=== PATIENT | male | born 1975 | race Caucasian/White ===

== ENCOUNTER 2018-04-22 18:31 | Emergency (ER) | payer SELFPAY ==
[~2018-04-22] VITALS: Ht 172.7 cm; Wt 90.7 kg
[2018-04-22] MEDS ORDERED: IV NS 0.9% 1,000 ML BAG IV ONE ×2 (19:00→21:00)
[2018-04-22 19:11] LABS: BASOPHILS # (AUTO) 0.1 /CMM (0.0-0.2); BASOPHILS % (AUTO) 0.6 % (0.0-2.0); EOSINOPHILS % (AUTO) 0.1 % (0.0-6.0); HEMATOCRIT 45 % (39-51); HEMOGLOBIN 15.4 g/dL (13.5-17.5); LYMPHOCYTES # (AUTO) 1.5 /CMM (0.8-4.8); LYMPHOCYTES % (AUTO) 13.2 % (20.0-44.0); MEAN CORPUSCULAR HGB CONC 34 g/dl (31.0-36.0); MEAN CORPUSCULAR VOLUME 96 fL (80-96); MONOCYTES # (AUTO) 0.8 /CMM (0.1-1.30); MONOCYTES % (AUTO) 6.5 % (2.0-12.0); NEUTROPHILS # (AUTO) 9.3 /CMM (1.8-8.9); NEUTROPHILS % (AUTO) 79.6 % (43.0-81.0); PLATELET COUNT (AUTO) 249 /CMM (150-450); RED BLOOD CELL COUNT(AUTO) 4.73 MIL/uL (4.5-6.0); WHITE BLOOD COUNT (AUTO) 11.6 K/uL (4.3-11.0)
[2018-04-22 19:24] LABS: CALCIUM, SERUM 8.5 mg/dL (8.5-10.1); CARBON DIOXIDE 23 mmol/L (21-32); CHLORIDE 104 mmol/L (98-107); GLUCOSE 142 mg/dL (74-106); SODIUM SERUM 134 mmol/L (136-145); UREA NITROGEN, BLOOD 18 mg/dL (7-18)
[2018-04-22 19:28] LABS: ALANINE AMINOTRANSFERASE 693 U/L (12-78); ALBUMIN 3.8 g/dL (3.4-5.0); ALCOHOL, BLOOD 106 mg/dL (0-0); ALKALINE PHOSPHATASE 121 U/L (46-116); ASPARTATE AMINOTRANSFERASE 290 U/L (15-37); BILIRUBIN,DIRECT 0.1 mg/dL (0.0-0.2); BILIRUBIN,TOTAL 0.4 mg/dL (0.2-1.0); TOTAL PROTEIN, SERUM 7.5 g/dL (6.4-8.2)
[2018-04-22 19:29] LABS: ACETAMINOPHEN < 10 ug/ml (10-30); SALICYLATE 1.7 mg/dL (2.8-20.0)
--- NOTE | 2018-04-22 19:30 | NUR ---
RECEIVED REPORT FROM DARWIN HAMILTON FOR [facility]ZA. PT ASHU PT WAS UNCONSCIOUS AND BYSTANDER CALLED 911. PT REC'D 2MG NARCAN EN ROUTE. PT NOW AAOX4. RESPIRATIONS EVEN AND UNLABORED. SKIN INTACT. VITAL SIGNS STABLE. NO ACUTE DISTRESS NOTED AT THIS TIME
--- NOTE | 2018-04-22 19:31 | NUR ---
[employer] AT BEDSIDE
--- NOTE | 2018-04-22 20:25 | NUR ---
PT UNABLE TO PROVIDE URINE SAMPLE AT THIS TIME
--- NOTE | 2018-04-22 20:30 | NUR ---
[facility] AT BEDSIDE
--- NOTE | 2018-04-22 21:55 | NUR ---
URINE COLLECTED AND SENT TO LAB
[2018-04-22 22:06] LABS: APPEARANCE,URINE Clear (CLEAR); BILIRUBIN,URINE Negative (NEGATIVE); BLOOD, URINE Negative Ery/uL (NEGATIVE); COLOR,URINE Yellow (YELLOW); KETONES,URINE Negative (NEGATIVE); LEUKOCYTE ESTERASE ,URINE Negative (NEGATIVE); NITRITE, URINE Negative (NEGATIVE); PROTEIN,URINE Negative (NEGATIVE); UGLUCOSE Negative (NEGATIVE); UROBILINOGEN,URINE 0.2 EU/dL (0.2)
--- NOTE | 2018-04-22 23:24 | NUR ---
PROVIDED PT WITH CLOTHES. OFFERED PT SANDWICH AND CRACKERS, PT REFUSED. PT STATES HE DOES NOT WANT HELP WITH RESOURCES OR TO WAIT FOR SUPPLY AND DISTRIBUTION MANAGER, STATES "I JUST WANT TO LEAVE AND FIND MY STUFF". PT STATES HE IS GOING TO [facility] [place], PROVIDED PT WITH MONEY FOR BUS TOKEN BY NURSING WEB PRESS OPERATOR APPRENTICE. PT PROVIDED WITH AFTER CARE INSTRUCTIONS AND LIST OF HOMELESS RESOURCES AND SHELTERS. DR. ELLIS PRESCRIBED NARCAN, PT REFUSED PRESCRIPTION. PT AAOX4. ABLE TO AMBULATE WITH STEADY GAIT. IV removed. Catheter intact and site benign. Pressure and 4x4 applied to site. No bleeding noted.
[2018-04-22 23:27] VITALS: BP 141/89
== END 2018-04-22 23:30 | disposition home or self-care (01) ==
LOC: EDBD 18:38 → ER 18:38
DX: T40.601A Poisoning by unspecified narcotics, accidental (unintentional), initial encounter (principal); F10.129 Alcohol abuse with intoxication, unspecified; R00.0 Tachycardia, unspecified; Y90.5 Blood alcohol level of 100-119 mg/100 ml; Y92.89 Other specified places as the place of occurrence of the external cause
CPT/HCPCS: 36415; 71045; 76705; 80048; 80076; 80305; 80307; 80329; 81001; 85025; 93005; 99284; A4606; G0480; J7030 ×2; 81000-TC